=== PATIENT | female | born 1960 | race Caucasian/White ===

== ENCOUNTER → 2024-07-19 | Outpatient (CLI) | payer MEDICARE, BC, SELFPAY ==
[2024-07-19 12:13] LABS: Urea Breath Test Negative (Negative)
== END | disposition home or self-care (01) ==
PROVIDERS: PCP Nurse Practitioner Family; Referring Provider Specialist; Visit Provider Specialist
DX: Z01.89 Encounter for other specified special examinations (principal); B96.81 Helicobacter pylori [H. pylori] as the cause of diseases classified elsewhere
CPT/HCPCS: 83013; 83014

== ENCOUNTER → 2024-12-23 | Outpatient (CLI) | payer MEDICARE, SELFPAY ==
[2024-12-23 14:34] LABS: Collection Type, Urine Clean Catch
[2024-12-23 15:35] LABS: Bacteria,Urine 2+; Bilirubin,Urine Negative (Negative); Blood,Urine 3+ (Negative); Color,Urine Lt-Yellow (Lt Yel-Yel); Glucose, Urine Negative (Negative); Ketones,Urine Negative (Negative); Leukocyte Esterase,Urine Positive (Negative); Nitrite,Urine Negative (Negative); PH,Urine 6.5 (5.0-7.0); Protein,Urine Trace (Neg - Trace); RBC,Urine 29 /hpf (0-3); Specific Gravity,Urine 1.008 (1.001-1.035); Squamous Epithelial Cell,Urine 7 /hpf (0-5); Urobilinogen,Urine Negative mg/dL (0.0-1.0); WBC,Urine 536 /hpf (0-5)
[2024-12-23 15:44] LABS: Clarity,Urine Hazy (Clear/Hazy)
== END | disposition home or self-care (01) ==
LOC: SLDO 14:28
PROVIDERS: Referring Provider Nurse Practitioner Family; Visit Provider Nurse Practitioner Family
DX: N39.0 Urinary tract infection, site not specified (principal)
CPT/HCPCS: 81001; 87077; 87086; 87186

== ENCOUNTER → 2025-01-05 | Outpatient (CLI) | payer MEDICARE, SELFPAY | END | disposition home or self-care (01) | LOC: SLDO 14:36 | PROVIDERS: PCP Physician Assistant; Referring Provider Physician Assistant; Visit Provider Physician Assistant | DX: N39.0 Urinary tract infection, site not specified (principal) | CPT/HCPCS: 87077; 87086; 87186 ==

== ENCOUNTER 2025-02-28 08:41 | Outpatient (AMB) | payer BC, MEDICARE, SELFPAY ==
[2025-02-28 08:55] VITALS: BP 129/79; PULSE 77; RESP 17; TEMP 36.4; O2SAT 98; BMI 21.2
--- NOTE | 2025-02-28 08:55 | GYNCLNT_ITS ---
Vital Signs 02/28/25 08:55 Height 1.7 m Height Method Measured Weight 61.405 kg Weight Measurement Method Standing Scale BMI 21.2 BP 129/79 Blood Pressure Source Automatic Cuff Blood Pressure Location Right Upper Arm Position Sitting Respiration 17 Pulse 77 Pulse Source Monitor Temp 97.5 F Temp Source Temporal Artery Scan Pulse Oximetry (%) 98 Oxygen Delivery Method Room Air Allergies/Home Meds Allergies & Medications Allergies No Known Allergies Allergy (Verified 02/28/25 08:56) Medication Reconciliation conjugated estrogens 0.625 mg/gram vaginal cream (Premarin) 0.625 mg topical QDAY 05/17/24 [History Confirmed 02/28/25] estradiol 0.05 mg/24 hr weekly transdermal patch 1 patch transdermal QWEEK #4 ea 03/05/25 [Rx] Intake Visit Data Collection New Patient or Established: Established Patient (seen at [facility] within 3 years) Reason for Visit:: REF DISCUSS HORMONES Consent obtained for Telemed Visit: No Seen by Clinical Staff ONLY (RN/MA): No Registered Nurse Maternal Child Required: No Do You Feel Safe at Home: Yes Authorities Contacted: N/A PCP or OBGYN visit in last 3 months: No Hx Now: No Are you currently on any form of Control: No Pain Present Currently: No Pain Scale Used: Sepulveda-Smith/Numerical Pain scale:: 0 Smoking Status Smoking Status: Never smoker 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 She just recently began dating. She has been using estrogen cream vaginally. Last Pap was before her hysterectomy. Her hysterectomy was done for endometriosis and fibroids per patient. PUBLIC RELATIONS PLAYER: Past Medical History Past Medical History: Yes Hx Hysterectomy Additional Operations/Hospitalizations (year & reason): Appendectomy 1971 Vaginal delivery 1993 Total hysterectomy with BSO 2008 Bilateral cataract surgery in 2019 Other Relevant History: Irritable bowel syndrome H. pylori Questionnaires Covid-19 Vaccine Questionnaire Has patient been vacinated for Covid-19 Have you been vacinated for Covid-19: Yes PHQ-9 PHQ-2 Over the last 2 weeks, how often have you been bothered by any of the following problems? 1. Little interest or pleasure in doing things: not at all 2. Feeling down, depressed, or hopeless: not at all Total score: 0 PHQ-9 3. Trouble falling or staying asleep, or sleeping too much: Not at all 4. Feeling tired or having little energy: Not at all 5. Poor appetite or overeating: Not at all 6. Feeling bad about yourself - or that you are a failure or have let yourself or your family down: Not at all 7. Trouble concentrating on things, such as reading the newspaper or watching television: Not at all 8. Moving or speaking so slowly that other people could have noticed? - Or the opposite - being so fidgety or restless that you have been moving around a lot more than usual: not at all 9. Thoughts that you would be better off or of hurting yourself in some way: Not at all Total score: 0 If you checked off any problems, how difficult have these problems made it for you to do your work, take care of things at home, or get along with other people?: not difficult at all Source: Developed by Drs. William Ovalle, Teodora Block, Kendrick Kim and colleagues, with an educational taco from [employer]. Depression screen completed yes Social History Living Situation History Marital Status: (Patient states her spouse 2 and half years ago) Lives With: Family Housing: House Housing Other:: Patient is a retired dental hygienist. She is recently dating Tobacco History Smoking Status: Never smoker Alcohol History Alcohol Intake: Current Domestic Abuse History Do You Feel Safe at Home: Yes History of Present Illness HPI Narrative The patient is a 64-year-old -0-1-1 referred from Twyla Thomas nurse practitioner to discuss hormones. She had a total hysterectomy BSO to age 48 performed in [place] for what sounds like for endometriosis and fibroids. She stated she went on hormones right away and she was doing very well. She was then taken off her hormones about 5 to 6 years ago by a provider at [facility]. She is unsure who discontinued them. I have no records except some notes from Twyla Thomas about a recent UTI. She states her spouse 2-1/2 years ago and she has been dating recently. She has been trying some Premarin cream for libido and vaginal dryness but does not feel like this is adequate. She would like to go back on systemic hormone therapy. She states that she feels this will help her libido and her hot flashes she is having at nighttime. She would also like name of a GI doctor to be referred to for abdominal bloating and gas pain. She states she was diagnosed with H. pylori 4 to 5 months ago. She suffers from IBS. She is asking about possible testosterone to increase libido. The patient does not have any family history of breast cancer. Review of Systems Review of Systems Narrative Review of Systems: The patient reports constipation, abdominal pain, and bloating, she reports pain with urination and urinary frequency, she reports an extremely dry vagina, painful intercourse with a history of adhesions in her vagina. She stated she saw Megan for pelvic floor physical therapy for her vaginal adhesions in [place] in the past. She reports anxiety and occasional hot flashes at night. Exam Narrative Physical exam: Patient is alert and oriented x 3 and appears her stated age General Limitations: no limitations General Appearance: alert, in no apparent distress, comfortable, cooperative, healthy appearing and well groomed Neck Neck exam: Present normal inspection, full ROM and trachea midline Chest Chest inspection: Present normal inspection and symmetric chest wall rise Resp Respiratory exam: Present normal lung sounds bilaterally Card Cardiovascular exam: Present regular rate, normal rhythm and normal heart sounds Abdominal Abdominal exam: Present soft and normal bowel sounds External exam: Present normal external exam (No signs of severe atrophic vaginitis present) Speculum exam: Present normal speculum exam (Her vaginal canal seems well estrogenized and admits a normal size speculum.) Bimanual exam: Present normal bimanual exam (Cervix, uterus, adnexa surgically absent. No pain. No signs or evidence of vaginal adhesions present) Psych Psychiatric exam: Present normal affect and normal mood Skin Skin exam: Present warm, dry, intact and normal color Office Procedures OB Clinic LOC & Office Proc's Nursing/Assessment Patient Status: Established Patient OB Clinic Nursing Assessment: Medication Reconciliation, Update PMH in EMR and Vital Signs OB Clinic Coordination of Care: Complex Care/Chronic Disease 5 or more, Consent,records obtained, informed consent and Staff clarify orders Established Patient Charge Established Patient Point Assignment: 80 Established Patient Point Charge: EP Level 3 (80-115) Assessment & Plan Diagnosis / Problem List (1) Menopausal and postmenopausal disorder: Status: Acute Assessment and Plan: The patient underwent a surgical menopause in 2008. She is states she was placed immediately on estrogen after surgery for approximately 10 years, and that she has been off systemic hormones for approximately 5 to 6 years. She recently started vaginal Premarin cream for atrophic vaginitis. She states she has been reading about hormones a lot and that there are benefits to hormones as far as decreased risk of osteoporosis and possibly decreased risk of Alzheimer's and dementia. The patient does not smoke, she does not have hypertension. She is not obese. She has no family history of breast, uterine or ovarian cancer. Her BMI is 21. The patient would like to try an estrogen patch. She would also like to try some type of testosterone cream if possible to increase her libido. I told the patient is unusual to restart hormones at age 64 and it is usually not advised. The patient understands the possible association with hormone replacement therapy and breast cancer. She understands the increased risk of stroke and increased risk of blood clots including DVT and PE with hormone replacement therapy. She feels hormones might help with her joint pain and arthritis. After about a 20-minute discussion regarding the risks of restarting hormone replacement therapy at 64, patient states she would still like to try a patch at this time. I will write for a 0.05 mg estradiol patch weekly and will try to prescribe testosterone cream through a compounding pharmacy. The patient will follow-up with Twyla Thomas NP for her primary care needs. Advanced Care Planning Advance care planning discussed with:: other (The patient declined advance care planning)
== END 2025-02-28 09:51 | disposition home or self-care (01) ==
PROVIDERS: PCP Physician Assistant; Referring Provider Physician Assistant; Supervising Provider Obstetrics & Gynecology; Visit Provider Obstetrics & Gynecology
DX: N95.1 Menopausal and female climacteric states (principal); R23.2 Flushing; F41.9 Anxiety disorder, unspecified; N94.10 Unspecified dyspareunia; Z90.710 Acquired absence of both cervix and uterus
CPT/HCPCS: 99213; G0463

== ENCOUNTER → 2025-07-13 | Outpatient (CLI) | payer MEDICARE, BC, SELFPAY ==
[2025-07-13 12:46] LABS: Basophils # (Auto) 0.1 Thou/mm3 (0.0-0.2); Basophils % (Auto) 1 % (0-2.5); Eosinophils # (Auto) 0.2 Thou/mm3 (0.0-0.5); Eosinophils % (Auto) 4 % (0-10); Hematocrit 39.5 % (36.0-46.0); Hemoglobin 12.9 g/dL (12.0-16.0); Immature Granulocytes Auto 0.02 Thou/mm3 (0.00-0.00); Lymphocytes # (Auto) 2.1 Thou/mm3 (1.0-4.8); Lymphocytes % (Auto) 34 % (10-50); Mean Corpuscular HGB Conc 32.7 g/dl (31.0-37.0); Mean Corpuscular Hemoglobin 30.6 pg (25.0-35.0); Mean Corpuscular Volume 94 fL (80-100); Monocytes # (Auto) 0.6 Thou/mm3 (0.0-0.8); Monocytes % (Auto) 10 % (0-12); Neutrophils # (Auto) 3.1 Thou/mm3 (1.8-7.7); Neutrophils % (Auto) 52 % (37-80); Nucleated Red Blood Cell # 0.00 Thou/mm3 (0.00-0.00); Nucleated Red Blood Cell % 0 /100 WBC (0); Platelet Count 290 Thou/mm3 (140-440); RDW Standard Deviation 46.1 fL (36.4-46.3); Red Blood Count 4.21 Miln/mm3 (4.00-5.20); White Blood Count 6.1 Thou/mm3 (3.6-11.0)
[2025-07-13 12:54] LABS: Glucose Estimated Average 108 mg/dL (80-131); Hemoglobin A1C 5.4 % Hgb (4.8-6.0)
[2025-07-13 13:05] LABS: Collection Type, Urine Clean Catch
[2025-07-13 13:36] LABS: Bacteria,Urine Rare; Bilirubin,Urine Negative (Negative); Blood,Urine Negative (Negative); Clarity,Urine Clear (Clear/Hazy); Color,Urine Lt-Yellow (Lt Yel-Yel); Culture Indicated,Urine Not Indicated; Glucose, Urine Negative (Negative); Ketones,Urine Negative (Negative); Leukocyte Esterase,Urine Positive (Negative); Nitrite,Urine Negative (Negative); PH,Urine 6.0 (5.0-7.0); Protein,Urine Negative (Neg - Trace); RBC,Urine 1 /hpf (0-3); Specific Gravity,Urine 1.007 (1.001-1.035); Squamous Epithelial Cell,Urine 4 /hpf (0-5); Urobilinogen,Urine Negative mg/dL (0.0-1.0); WBC,Urine 6 /hpf (0-5)
[2025-07-13 13:46] LABS: Alanine Aminotransferase 18 U/L (10-49); Albumin, Serum 4.5 gm/dL (3.4-4.8); Albumin/Globulin Ratio 2.0 (1.2-2.2); Alkaline Phosphatase 51 U/L (46-116); Anion Gap 8 (7-16); Aspartate Amino Transferase 14 U/L (0-34); BUN/Creatinine Ratio 10 Ratio (12-20); Bilirubin,Total 1.0 mg/dL (0.3-1.2); Blood Urea Nitrogen 8 mg/dL (9-23); Calcium 9.7 mg/dL (8.3-10.6); Calcium (Corrected) 9.7 mg/dL (8.5-10.1); Carbon Dioxide 27.1 mMol/L (20.0-31.0); Chloride 107 mMol/L (98-107); Creatinine (Component) 0.8 mg/dL (0.6-1.3); Globulin 2.3 gm/dL (2.3-3.5); Glucose 83 mg/dL (74-106); Osmolality,Calculated 280 (275-295); Potassium 3.8 mMol/L (3.4-5.1); Sodium 142 mMol/L (136-145); Thyroid Stimulating Hormone 1.32 uIU/mL (0.55-4.78); Total Protein 6.8 gm/dL (5.7-8.2); eGFR > 60 See Note
[2025-07-13 15:43] LABS: Cardiac Risk Estimate 2.9 RATIO (3.7-5.6); Cholesterol 251 mg/dL (132-200); HDL Cholesterol 87 mg/dL (40-60); LDL Cholesterol,Calculated 149 mg/dL (0-130); Triglycerides 77 mg/dL (30-150)
[2025-07-13 17:02] LABS: Vitamin B12 498 pg/mL (211-911); Vitamin D 25 Hydroxy Total 29.3 ng/mL (7.3-40.2)
== END | disposition home or self-care (01) ==
LOC: COPL 11:50
PROVIDERS: PCP Nurse Practitioner Family; Referring Provider Nurse Practitioner Family; Visit Provider Nurse Practitioner Family
DX: Z00.00 Encounter for general adult medical examination without abnormal findings (principal)
CPT/HCPCS: 36415; 80053; 80061; 81001; 82306; 82607; 83036; 84443; 85025